=== PATIENT | male | born 1990 | race Caucasian/White ===

== ENCOUNTER 2019-02-24 13:29 | Emergency (ER) | payer SELFPAY ==
[2019-02-24] MEDS ORDERED: Sodium Chloride 0.9% 1,000 ML IV ONE (13:31)
[2019-02-24] MEDS ORDERED: LORazepam 2 MG/ML SDV IVPUSH ONE (13:31)
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
[2019-02-24 14:40] LABS: BLOOD UREA NITROGEN,BUN 6 mg/dL (7.0-18.0); CARBON DIOXIDE,CO2 28.4 mmol/L (21.0-32.0); CHLORIDE,CL 100 mmol/L (98-107); GLUCOSE RANDOM 103 mg/dL (74-106); POTASSIUM,K 4.1 mmol/L (3.5-5.1); SODIUM,NA 138 mmol/L (136-148)
--- NOTE | 2019-02-24 14:43 | CT ---
Head CT Technique: Multiple axial sections through the brain were obtained. Intravenous contrast was not utilized. Comparison: No prior intracranial imaging is available. Findings: Ventricles along with basal cisterns and sulci over the convexities appear within normal limits for the patient's age. No abnormal parenchymal densities are seen. No evidence of intracranial hemorrhage or mass effect is seen. Bone window settings were reviewed which show the mastoid sinuses to appear clear. Slight retention cyst is noted within the posterior left ethmoid sinuses. No acute paranasal sinus finding is seen. Impression: 1. Minimal sinus finding which is believed to be chronic as noted above. 2. Nothing acute is seen on noncontrast head CT study. Diagnostic code #2 MTDD
[2019-02-24] MEDS ORDERED: levETIRAcetam Soln 500 MG/5 ML Cup PO ONE (14:48)
[2019-02-24] MEDS ORDERED: levETIRAcetam 500 MG Tab PO ONE (15:25)
[2019-02-24] MEDS ORDERED: levETIRAcetam 500 MG Tab ONE (15:25)
[2019-02-24 15:53] VITALS: BP 101/61; PULSE 115
== END 2019-02-24 15:50 | disposition home or self-care (01) ==
LOC: MW.ED 13:29
DX: R25.8 Other abnormal involuntary movements (principal); I10 Essential (primary) hypertension
CPT/HCPCS: 70450; 80053; 80305; 81003; 85025; 96361; 96374; 99284; A9270; J2060; J7040